=== PATIENT | female | born 1950 | race Caucasian/White ===

== ENCOUNTER 2024-12-17 09:12 | Day surgery (SDC) | payer MEDICARE ==
[~2024-12-17] VITALS: Ht 165.1 cm; Wt 77.1 kg
[~2024-12-17 09:12] MED LIST: Balanced Salt Epinephrine Irrigation Solution 500 mL IR SCH; Diazepam 5 MG Tab PO PRN; Diazepam 5 MG Tab PO SCH; Lidocaine HCl/Pf 1% 5 ML VIAL XX SCH; Moxifloxacin HCL 0.5 MG/0.1 ML 0.4MLSYR RIGHTEYE SCH; Ondansetron 4 MG SoluTab MM PRN; PHENYLEPHRINE\\TROPICAMIDE\\TETRACAINE OPHTHALMIC DILATING SOLN RIGHTEYE PRN; Povidone-Iodine 450 DROP/30 ML Solution ONE; Povidone-Iodine 450 DROP/30 ML Solution RIGHTEYE SCH; Tetracaine HCl/Pf 0.5% Opth Soln 4 ml ONE; Triamcinolone Inj Susp 40 MG / ML 1ML Vial INJ SCH; Triamcinolone Inj Susp 40 MG / ML 1ML Vial ONE
[2024-12-17] MEDS ORDERED: Diazepam 10 MG Tab ONE (09:22)
--- NOTE | 2024-12-17 09:46 | NUR ---
12/17/24 0946 Estrellita Muhammad PATIENT REPORTS ANXIETY LEVEL AT 09/12 PRIOR TO ADMINISTRATION OF VALIUM 10MG PO @ 0931 TETRACAINE IN AT 0933 PLEDGETT IN AT 0934 CALL LIGHT PLACED IN PATIENT'S HAND. CONTINUOUS SPO2 AND HR MONITORING IN PLACE.
--- NOTE | 2024-12-17 10:21 | NUR ---
12/17/24 1021 Cricket Aponte BP 170/92, P 68, O2 100%. PT RESTING COMFORTABLY WITH BLOW BY O2 AT 10L.
[2024-12-17 10:31] VITALS: BP 157/81
--- NOTE | 2024-12-17 10:41 | NUR ---
12/17/24 1041 GLENYS GARAY AT BEDSIDE.
== END 2024-12-17 10:52 | disposition home or self-care (01) ==
LOC: ORSCSDS 09:12
PROVIDERS: Ophthalmology
PROC: 08RJ3JZ Replacement of Right Lens with Synthetic Substitute, Percutaneous Approach (ICD-10-PCS; principal; 2024-12-17 11:00)
DX: H25.813 Combined forms of age-related cataract, bilateral (principal); H40.9 Unspecified glaucoma; Z87.891 Personal history of nicotine dependence
CPT/HCPCS: A9270; J3301; V2632

== ENCOUNTER 2025-01-08 09:33 | Day surgery (SDC) | payer MEDICARE ==
[~2025-01-08] VITALS: Ht 165.1 cm; Wt 77.7 kg
[~2025-01-08 09:33] MED LIST changes: -Diazepam 5 MG Tab PO PRN; -Diazepam 5 MG Tab PO SCH; +Moxifloxacin HCL 0.5 MG/0.1 ML 0.4MLSYR LEFTEYE SCH; -Moxifloxacin HCL 0.5 MG/0.1 ML 0.4MLSYR RIGHTEYE SCH; +NS 500 ML IV ONE; -Ondansetron 4 MG SoluTab MM PRN; +PHENYLEPHRINE\\TROPICAMIDE\\TETRACAINE OPHTHALMIC DILATING SOLN LEFTEYE PRN; -PHENYLEPHRINE\\TROPICAMIDE\\TETRACAINE OPHTHALMIC DILATING SOLN RIGHTEYE PRN; +Povidone-Iodine 450 DROP/30 ML Solution LEFTEYE SCH; -Povidone-Iodine 450 DROP/30 ML Solution RIGHTEYE SCH
[2025-01-08] MEDS ORDERED: NS 500 ML IV ONE (10:57)
[2025-01-08] MEDS ORDERED: Midazolam HCl 1MG / ML 2ML Vial ONE (11:56)
[2025-01-08 12:47] VITALS: BP 161/80
== END 2025-01-08 12:43 | disposition home or self-care (01) ==
LOC: ORSCSDS 09:33
PROVIDERS: Ophthalmology
PROC: 08RK3JZ Replacement of Left Lens with Synthetic Substitute, Percutaneous Approach (ICD-10-PCS; principal; 2025-01-08 12:00)
DX: H25.812 Combined forms of age-related cataract, left eye (principal); Z96.1 Presence of intraocular lens; H40.1190 Primary open-angle glaucoma, unspecified eye, stage unspecified
CPT/HCPCS: J2250; J3301; J7040; V2632